=== PATIENT | female | born 1975 | race Caucasian/White ===

== ENCOUNTER 2017-08-17 19:03 | Emergency (ER) | payer BC, OTHER ==
--- NOTE | 2017-08-17 19:11 | EDM.PDOC ---
ED HPI GENERAL MEDICAL PROBLEM - General Stated Complaint: ABD/BACK/SIDE PAIN Time Seen by Provider: 08/17/17 19:03 Source of Information: Reports: Patient, Family History Limitations: Reports: No Limitations - History of Present Illness INITIAL COMMENTS - FREE TEXT/NARRATIVE: 41 years old w f came to the ed due to acute onset of pain at her left flank, pain radiating to her left groin. Pt denied trauma, denied kidney stones, no f/c /d. no N/V no other acute medical issues at this time. Onset: Today Onset Date: 08/17/17 Onset Time: 07:00 Duration: Hour(s): Location: Reports: Abdomen Quality: Reports: Ache, Burning, Dull, Stabbing, Throbbing Severity: Moderate Improves with: Reports: None Worsens with: Reports: None Associated Symptoms: Reports: No Other Symptoms Left flank Pain Score (Numeric/FACES): 9 - Related Data Allergies Allergy/AdvReac Type Severity Reaction Status Date / Time No Known Allergies Allergy Verified 08/17/17 19:28 Home Meds: Home Meds Ascorbic Acid [Vitamin C] 1 tab PO DAILY 08/17/17 [History] Biotin 5 mg PO DAILY 08/17/17 [History] Calcium Carb/Magnesium Oxid/D3 [Calcium Magnesium + D] 1 tab PO DAILY 08/17/17 [ History] Ciprofloxacin HCl [Cipro] 500 mg PO BID #20 tablet 08/17/17 [Rx] Cyanocobalamin (Vitamin B-12) [Vitamin B-12] 1 tab PO DAILY 08/17/17 [History] Multivitamin [Multi-Day Vitamins] 1 tab PO DAILY 08/17/17 [History] Tamsulosin [Tamsulosin 24 Hr] 0.4 mg PO DAILY #4 cap.er 08/17/17 [Rx] Vitamin E 1 cap PO DAILY 08/17/17 [History] Past Medical History - Past Health History Medical/Surgical History: Denies Medical/Surgical History - Past Surgical History HEENT Surgical History: Reports: MARIANNA Social & Family History - Tobacco Use Smoking Status *Q: Current Every Day Smoker Years of Tobacco use: 19 Packs/Tins Daily: 1 - Recreational Drug Use Recreational Drug Use: No Drug Use in Last 12 Months: No - Living Situation & Occupation Living situation: Reports: Occupation: Employed ED ROS GENERAL - Review of Systems Review Of Systems: See Below Constitutional: Reports: No Symptoms HEENT: Reports: No Symptoms Respiratory: Reports: No Symptoms Cardiovascular: Reports: No Symptoms Endocrine: Reports: No Symptoms GI/Abdominal: Reports: Abdominal Pain : Reports: No Symptoms Musculoskeletal: Reports: No Symptoms Skin: Reports: No Symptoms Neurological: Reports: No Symptoms Psychiatric: Reports: No Symptoms Hematologic/Lymphatic: Reports: No Symptoms Immunologic: Reports: No Symptoms ED EXAM, GI/ABD - Physical Exam Exam: See Below Exam Limited By: No Limitations General Appearance: Alert, WD/WN, Moderate Distress Eyes: Bilateral: Normal Appearance Ears: Normal External Exam Nose: Normal Inspection Throat/Mouth: Normal Inspection, Normal Lips Head: Atraumatic, Normocephalic Neck: Normal Inspection, Supple, Non-Tender, Full Range of Motion Respiratory/Chest: No Respiratory Distress, Lungs Clear, Normal Breath Sounds, No Accessory Muscle Use, Chest Non-Tender Cardiovascular: Normal Peripheral Pulses, Regular Rate, Rhythm, No Edema GI/Abdominal Exam: Normal Bowel Sounds, Tender (left flank radiating to left groin) (Female) Exam: Deferred Rectal (Female) Exam: Deferred Back Exam: Normal Inspection, Full Range of Motion Extremities: Normal Inspection, Normal Range of Motion Neurological: Alert, Oriented, CN II-XII Intact, Normal Cognition, Normal Gait Psychiatric: Normal Affect, Normal Mood Skin Exam: Warm, Dry, Intact, Normal Color, No Rash Lymphatic: No Adenopathy Course - Vital Signs Text/Narrative:: 41 years old w f came to the ed due to acute onset of pain at her left flank, pain radiating to her left groin. Pt denied trauma, denied kidney stones, no f/c /d. no N/V no other acute medical issues at this time. PE:left flank pain Labs: WBC H/H Na K all nl. BUN 22 Cr 1.8, UTI Imagin mm stone left UVJ with mild hydronephrosis Impression: 4 mm stone left UVJ with mild hydronephrosis, UTI Tx: Toradol. Dilaudid, Flomax and Cipro Reexam: Improved Plan: D/C with instructions Last Recorded V/S: Last Vital Signs Temp 36.6 C 08/17/17 21:30 Pulse 56 L 08/17/17 21:30 Resp 18 08/17/17 21:30 BP 132/92 H 08/17/17 21:30 Pulse Ox 100 08/17/17 21:30 - Orders/Labs/Meds Labs: Laboratory Tests 08/17/17 08/17/17 08/17/17 Range/Units 19:15 19:30 19:30 WBC 10.8 (4.5-12.0) X10-3/uL RBC 3.95 (3.23-5.20) x10(6)uL Hgb 13.3 (11.5-15.5) g/dL Hct 37.3 (30.0-51.3) % MCV 94.5 (80-96) fL MCH 33.7 H (27.7-33.6) pg MCHC 35.7 H (32.2-35.4) g/dL RDW 11.2 L (11.5-15.5) % Plt Count 294 (125-369) X10(3)uL MPV 7.6 (7.4-10.4) fL Neut % (Auto) 70.2 (46-82) % Lymph % (Auto) 19.6 (13-37) % [place] % (Auto) 8.1 (4-12) % Eos % (Auto) 2 (1.0-5.0) % Baso % (Auto) 1 (0-2) % Neut # (Auto) 7.5 (1.6-8.3) # Lymph # (Auto) 2.1 (0.6-5.0) # [place] # (Auto) 0.9 (0.0-1.3) # Eos # (Auto) 0.2 (0.0-0.8) # Baso # (Auto) 0.1 (0.0-0.2) # Sodium 136 (135-145) mmol/L Potassium 4.2 (3.5-5.3) mmol/L Chloride 99 L (100-110) mmol/L Carbon Dioxide 29 (23-29) mmol/L BUN 22 H (5-20) mg/dL Creatinine 1.8 H (0.6-1.3) mg/dL Est Cr Clr Drug Dosing TNP Estimated GFR (MDRD) 31 L (>60) BUN/Creatinine Ratio 12.2 (9-20) Glucose 100 (80-116) mg/dL Calcium 9.1 (8.6-10.2) mg/dL Urine Color Yellow (YELLOW) Urine Appearance Cloudy (CLEAR) Urine pH 7.0 H (5.0-6.5) Ur Specific [place] 1.015 (1.010-1.025) Urine Protein Negative (NEGATIVE) mg/dL Urine Glucose (UA) Normal (NEGATIVE) mg/dL Urine Ketones Negative (NEGATIVE) mg/dL Urine Occult Blood Moderate H (NEGATIVE) Urine Nitrite Negative (NEGATIVE) Urine Bilirubin Negative (NEGATIVE) Urine Urobilinogen Normal (NEGATIVE) mg/dL Ur Leukocyte Esterase Large H (NEGATIVE) Urine RBC 5-10 (0) Urine WBC 5-10 (0) Ur Squamous Epith Cells Occasional (NS,R,O) Urine Bacteria Few H (NS) Meds: Medications Discontinued Medications Generic Name Dose Route Start Last Admin Trade Name Freq PRN Reason Stop Dose Admin Ciprofloxacin 500 mg 08/17/17 21:16 08/17/17 21:30 Ciprofloxacin Hcl PO 08/17/17 21:17 500 mg ONETIME ONE Administration Hydromorphone HCl 0.5 mg 08/17/17 19:55 08/17/17 20:03 Dilaudid IVPUSH 08/17/17 19:56 0.5 mg ONETIME ONE Administration Ketorolac Tromethamine 30 mg 08/17/17 19:15 08/17/17 19:27 Toradol IVPUSH 08/17/17 19:16 30 mg ONETIME ONE Administration Tamsulosin HCl 0.4 mg 08/17/17 20:24 08/17/17 20:34 Flomax PO 08/17/17 20:25 0.4 mg ONETIME ONE Administration Departure - Departure Time of Disposition: 21:16 Disposition: Home, Self-Care 01 Condition: Good Clinical Impression: Urolithiasis Qualifiers: Urinary calculus location: lower urinary tract Qualified Code(s): N21.9 - Calculus of lower urinary tract, unspecified UTI (urinary tract infection) Qualifiers: Urinary tract infection type: acute cystitis Hematuria presence: with hematuria Qualified Code(s): N30.01 - Acute cystitis with hematuria - Discharge Information Prescriptions: Ciprofloxacin HCl [Cipro] 500 mg PO BID #20 tablet Tamsulosin [Tamsulosin 24 Hr] 0.4 mg PO DAILY #4 cap.er Instructions: Kidney Stones, [id number] Referrals: Sheridan Mock NP [Primary Care Provider] - Forms: ED Department Discharge, ED Return to Work/School Form Additional Instructions: Take 1 Percocet every 6 hours as needed for severe pain. Please take Montrin 600 mg with food till you passed the stone. Please f/u with your PMD/Urologist. Please come back to the ED if your symptoms get worse acutely Strain urine to be able to see if you passed the stone.
[2017-08-17] MEDS ORDERED: Ketorolac 30 MG/ML SDV IVPUSH ONE (19:15)
[2017-08-17] MEDS ORDERED: HYDROmorphone 2 MG/ML SDV IVPUSH ONE (19:55)
[2017-08-17] MEDS ORDERED: Tamsulosin 0.4 MG Cap.ER PO ONE (20:24)
[2017-08-17] MEDS ORDERED: Acetaminophen/oxyCODONE 325-5 MG Tab PO ONE (21:06)
[2017-08-17] MEDS ORDERED: Ciprofloxacin 500 MG Tab PO ONE (21:16)
[2017-08-17 21:45] VITALS: BP 132/92
== END 2017-08-17 21:37 | disposition home or self-care (01) ==
LOC: FB.ED 19:03
DX: N13.2 Hydronephrosis with renal and ureteral calculous obstruction (principal); N30.01 Acute cystitis with hematuria; F17.210 Nicotine dependence, cigarettes, uncomplicated; Z79.899 Other long term (current) drug therapy
CPT/HCPCS: 36415; 74176; 80048; 81001; 85025; 96374; 96375; 99284; A9270; J1170; J1885

== ENCOUNTER 2023-12-01 07:34 | Emergency (ER) | payer BC ==
[2023-12-01] MEDS ORDERED: Sodium Chloride 0.9% 10 ML Syringe FLUSH PRN (07:40)
[2023-12-01] MEDS ORDERED: LORazepam 2 MG/ML SDV IVPUSH ONE (07:41)
[2023-12-01] MEDS ORDERED: LORazepam 2 MG/ML SDV ONE (07:42)
[2023-12-01 07:47] LABS: BASOPHILS ABSOLUTE AUTO 0.1 x10-3/uL (0.0-0.1); BASOPHILS PERCENT AUTO 1.1 % (0.2-1.5); EOSINOPHILS ABSOLUTE AUTO 0.2 x10-3/uL (0.0-0.8); EOSINOPHILS PERCENT AUTO 2.1 % (0.6-8.1); HEMATOCRIT 37.7 % (34.2-48.2); HEMOGLOBIN 12.7 g/dL (11.4-15.5); LYMPHOCYTES ABSOLUTE AUTO 1.8 x10-3/uL (1.0-4.4); LYMPHOCYTES PERCENT AUTO 18.8 % (18.4-52.1); MEAN CORPUSCULAR HEMOGLOBIN 32.8 pg (23.9-33.9); MEAN CORPUSCULAR HGB CONC 33.8 g/dL (31.9-34.8); MEAN PLATELET VOLUME 7.7 fL (7.1-12.4); MONOCYTES ABSOLUTE AUTO 0.6 x10-3/uL (0.3-1.0); MONOCYTES PERCENT AUTO 6.5 % (4.4-15.7); NEUTROPHILS ABSOLUTE AUTO 6.7 x10-3/uL (1.5-6.3); NEUTROPHILS PERCENT AUTO 71.5 % (30.8-76.2); PLATELET COUNT,PLT 329 x10(3)uL (151-488); RED BLOOD CELL COUNT 3.88 x10(6)uL (3.60-5.20); RED CELL DISTRIBUTION WIDTH 12.5 % (12.3-16.5); WHITE BLOOD CELL COUNT,WBC 9.4 x10-3/uL (3.0-10.3)
[2023-12-01 07:57] LABS: BLOOD UREA NITROGEN,BUN 16 mg/dL (7-18); BUN/CREATININE RATIO 17.8 (9-20); CALCIUM 9.5 mg/dL (8.6-10.2); CARBON DIOXIDE,CO2 27 mmol/L (21-32); CHLORIDE,CL 101 mmol/L (100-110); CREATININE 0.9 mg/dL (0.55-1.02); ESTIMATED GFR 80 mL/min (>60); GLUCOSE RANDOM 129 mg/dL (80-116); POTASSIUM,K 3.8 mmol/L (3.5-5.3); SODIUM,NA 138 mmol/L (135-145)
[2023-12-01 08:03] LABS: A/G RATIO 1.2; ALANINE AMINOTRANSFERASE,ALT 32 U/L (12-36); ALBUMIN 3.9 g/dL (3.5-5.2); ALKALINE PHOSPHATASE 58 IU/L (56-112); ASPARTATE AMNIOTRANSFERASE,AST 27 IU/L (5-25); BILIRUBIN TOTAL 0.4 mg/dL (0.1-1.3); PROTEIN TOTAL,TP 7.2 g/dL (6.0-8.0)
[2023-12-01 08:12] VITALS: BP 117/71; PULSE 64
== END 2023-12-01 08:58 | disposition home or self-care (01) ==
LOC: MERGE 07:34 → FB.ED 07:34
DX: F41.0 Panic disorder [episodic paroxysmal anxiety] (principal); Z87.891 Personal history of nicotine dependence
CPT/HCPCS: 36415; 71045; 80053; 84443; 85025; 93005; 96374; 99284-25; J2060; J3490

== ENCOUNTER 2025-09-26 07:33 | Day surgery (SDC) | payer BC ==
[2025-09-26] MEDS ORDERED: Propofol 200 MG/20 ML SDV IV ONE (07:34)
[2025-09-26] MEDS ORDERED: Sodium Chloride 0.9% 10 ML Syringe FLUSH PRN (07:45)
[2025-09-26 08:19] VITALS: BP 135/72; PULSE 61
[2025-09-26] MEDS: Lactated Ringers 1,000 ML IV SCH (08:28)
== END 2025-09-26 09:50 | disposition home or self-care (01) ==
LOC: FB.SDS 07:33
PROVIDERS: ATTEND Surgery
DX: Z12.11 Encounter for screening for malignant neoplasm of colon (principal); Z88.2 Allergy status to sulfonamides; Z79.899 Other long term (current) drug therapy; Z87.891 Personal history of nicotine dependence
CPT/HCPCS: 00812; 45378; A9270; J2704; J7120